=== PATIENT | female | born 1965 | race Two or more races ===

== ENCOUNTER → 2020-10-10 08:28 | Outpatient (BNVA) | payer SELFPAY | PROVIDERS: Visit Provider Internal Medicine | DX: Z02.79 Encounter for issue of other medical certificate (principal) ==

== ENCOUNTER → 2021-10-09 10:29 | Outpatient (BNVA) | payer SELFPAY | PROVIDERS: Visit Provider Internal Medicine | DX: Z02.79 Encounter for issue of other medical certificate (principal) ==

== ENCOUNTER → 2022-10-07 09:18 | Outpatient (BNVA) | payer SELFPAY | PROVIDERS: Visit Provider Physician Assistant | DX: Z02.79 Encounter for issue of other medical certificate (principal) ==

== ENCOUNTER → 2023-10-07 10:57 | Outpatient (BNVA) | payer SELFPAY | PROVIDERS: Visit Provider Physician Assistant | DX: Z02.79 Encounter for issue of other medical certificate (principal) ==

== ENCOUNTER → 2024-10-24 09:40 | Outpatient (BNVA) | payer SELFPAY | PROVIDERS: Visit Provider Physician Assistant | DX: Z02.79 Encounter for issue of other medical certificate (principal) ==

== ENCOUNTER 2024-10-24 10:42 | Emergency (ER) | payer SELFPAY ==
[2024-10-24] VITALS (7 sets, daily range): BP systolic 213–240; BP diastolic 91–114; PULSE 58–75; RESP 16–18; TEMP 36.3–36.6; O2SAT 95–97; BMI 33.6
--- NOTE | 2024-10-24 11:13 | ED.GENADULT ---
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 She is required to get annual physical exams to medically clear her to work as a middle school spanish teacher. Today she went to [facility] to get an annual physical. At the appointment she had elevated blood pressure readings which prevented her from passing her physical exam. She was advised to come to the emergency room because of her high blood pressure reading. The patient says that she has been on medication for hypertension in the past but not for a few years. She says she does not currently have insurance. 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 She has therefore been without a primary care doctor and has not been on any medications for a few years. The patient was feeling well earlier today when she went to her appointment and was surprised to find that her blood pressure was so high. She has had no headache, no chest pain, no shortness of breath, no other symptoms. She is very concerned about generating any kind of medical bill because of her lack of insurance. Related Data Previous Rx's ?Medication ?Instructions ?Recorded lisinopril 30 mg tablet 30 mg PO DAILY #30 tabs 10/24/24 Allergies Allergy/AdvReac Type Severity Reaction Status Date / Time Sulfa (Sulfonamide Allergy Hives Verified 10/24/24 10:56 Antibiotics) Review of Systems Review of Systems: Yes all other systems are reviewed and are negative [facility] Social History Social History Advance Directives: No Advance Directives Information Provided: Yes Physical Exam ED Vital Signs: Vital Signs - 24 hr 10/24/24 10:54 10/24/24 11:48 10/24/24 12:49 Temperature 97.4 F Pulse Rate 73 58 Respiratory Rate 18 16 Blood Pressure 234/112 H 240/114 H 213/91 H Pulse Oximetry 97 97 Oxygen Delivery Method Room Air Room Air 10/24/24 13:42 10/24/24 13:45 10/24/24 14:52 Temperature 97.9 F Pulse Rate 75 Respiratory Rate 16 Blood Pressure 232/106 H 232/106 H 213/92 H Pulse Oximetry 95 Oxygen Delivery Method Room Air BMI result Body Mass Index 33.6 Const Other: The patient is awake, alert, pleasant, cooperative. She is well-groomed. She is in no distress. She does not seem ill in any way. HENMT Other: Face is symmetrical. Mucous membranes moist. Eyes General: appearance normal, both eyes and all related structures Conjunctivae: conjunctivae normal Pupils: Equal, round and reactive pupils present EOM: EOMs intact bilaterally Neck Neck: Yes normal visual inspection, Yes full ROM and Yes no JVD Resp Effort & Inspection: normal respiratory effort Auscultation: clear to auscultation bilaterally Cardio Rate: regular rate Rhythm: regular rhythm Heart sounds: S1 normal heart sound present and S2 normal heart sound present GI Other: Abdomen is soft and nontender Skin Other: Skin is dry and unremarkable Neuro Other: The patient is awake and alert with a normal mental status and normal cognition. She is fully oriented. Cranial nerves 2-12 are intact. She moves her extremities normally with normal strength and coordination. She has a normal gait. She is neurologically intact. Cranial nerves: Yes Equal, round and reactive pupils present Extrem Other: No peripheral edema. No calf swelling or tenderness. 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 She has a history of hypertension but has had no insurance lately and has not been on antihypertensive medications for a few years. She has no symptoms. Her physical exam is unremarkable. The patient refused all testing because she is afraid of increasing her ER bill. I explained to the patient that if we were able to test her to make sure that her kidney function was good that that would be very helpful in feeling we could make a safe plan for management of what I think is probably worsening chronic hypertension. The patient continued to refuse any testing. She was given 20 mg of lisinopril and then a 2nd dose of 20 mg of lisinopril. Her blood pressure improved slightly. The patient will no longer be able to work after Tuesday because her license will labs because of her hypertension. She says that she plans on applying for a family medical leave. She hopes that this will reduce her income so that she can qualify for [employer] and she will then be able to get back in touch with her doctor, Dr. Sheridan for ongoing care. We were able to obtain a 30 day supply of lisinopril 30 mg daily. This was given to the patient here in the emergency room. She will start taking this as prescribed and will follow through with her plan to try to reduce her income and obtain [employer]. Discharge Plan Discharge Clinical Impression: Hypertension Patient Disposition: Home, Self-Care Instructions: Low-Sodium Diet (ED), Hypertension (ED) Additional Instructions: Please take the lisinopril tablets once a day. Also please read the information about a low-sodium diet. Reducing salt in your diet may be helpful as well. I will be working here at the emergency room tomorrow, on , between 11:00 AM and 9:00 PM. If I can help by signing any papers for a medical leave I would be happy to do that. My hope is that you will be able to apply for [employer] and obtain insurance to allow for ongoing treatment and further care. My hope is you will be able to follow up with your previous regular doctor. Return to the emergency room at any time if you feel significantly worse. Prescriptions: New lisinopril 30 mg tablet 30 mg PO DAILY Qty: 30 0RF Referrals: Umm Sheridan MD [Physician] - (hypertension) Discharge Date/Time: 10/24/24 15:32 Print Language: Maori
--- NOTE | 2024-10-24 11:28 | MHC.EDTECH ---
pt refusing EKG at this time, provider aware
[2024-10-24] MEDS: lisinopriL 20 MG TABLET PO ×2 (11:48→13:45)
== END 2024-10-24 15:32 | disposition home or self-care (01) ==
PROVIDERS: Emergency Provider Emergency Medicine
DX: R79.89 Other specified abnormal findings of blood chemistry (principal); I10 Essential (primary) hypertension
CPT/HCPCS: 99283